=== PATIENT | male | born 1970 | race Caucasian/White ===

== ENCOUNTER 2019-08-21 11:55 | Inpatient (IN) | payer BC ==
[2019-08-21 20:10] LABS: ANION GAP 13.3 mmol/L (5-15); CHLORIDE,CL 98 mmol/L (98-115); SODIUM,NA 133 mmol/L (136-145)
[2019-08-21] MEDS ORDERED: Sodium Chloride 0.9% 100 ML ONE (20:58)
[2019-08-21] MEDS ORDERED: Enoxaparin 40 MG/0.4 ML Syringe SUBCUT SCH (21:00)
[2019-08-21] MEDS ORDERED: Enoxaparin 30 MG/0.3 ML Syringe SUBCUT SCH (21:00)
[2019-08-21] MEDS: Enoxaparin 150 MG/1 ML Syringe SUBCUT SCH (21:31)
[2019-08-22] MEDS: Enoxaparin 150 MG/1 ML Syringe SUBCUT SCH ×2 (09:16→22:10)
--- NOTE | 2019-08-22 10:42 | US ---
[id number] US/US Venous Doppler LE Left EXAM: LEFT LOWER EXTREMITY DUPLEX ULTRASOUND INDICATION: LEFT LOWER EXTREMITY SWELLING AND REDNESS. COMPARISON: None. DISCUSSION: The deep venous structures are compressible. No valvular incompetence or pulsatility seen. Spontaneity, phasicity and response to augmentation were noted by the technologist. Prominent lymph node noted in the left groin measuring 31 x 17 x 16 mm. IMPRESSION: 1. No evidence of deep vein thrombosis in the left lower extremity. Demar Jackson MD 08/22/19 1041 Thank you for allowing us to participate in the care of your patient.
--- NOTE | 2019-08-22 10:48 | PCM.PN ---
- General Info Date of Service: 08/22/19 Functional Status: Reports: Pain Controlled, Tolerating Diet, Urinating. Denies : Ambulating, New Symptoms - Review of Systems General: Denies: Fever, Weakness, Fatigue, Malaise HEENT: Reports: No Symptoms Pulmonary: Reports: No Symptoms Cardiovascular: Reports: No Symptoms Gastrointestinal: Reports: No Symptoms Genitourinary: Reports: No Symptoms Musculoskeletal: Reports: No Symptoms Skin: Reports: Rash Neurological: Reports: No Symptoms Psychiatric: Reports: No Symptoms - Patient Data Vitals - Most Recent: Last Vital Signs Temp 98.8 F 08/22/19 06:40 Pulse 82 08/22/19 06:40 Resp 18 08/22/19 06:40 BP 129/78 08/22/19 06:40 Pulse Ox 99 08/22/19 06:40 Weight - Most Recent: 253 lb 9.6 oz I&O - Last 24 Hours: Intake & Output 08/21/19 08/22/19 08/22/19 22:59 06:59 14:59 Intake Total 90 Balance 90 Lab Results Last 24 Hours: Laboratory Results - last 24 hr 08/21/19 08/21/19 08/21/19 Range/Units 19:40 19:40 19:40 WBC 7.42 (5.00-10.00) 10^3/uL RBC 4.88 (4.50-6.00) 10^6/uL Hgb 14.8 (13.0-17.0) g/dL Hct 42.7 (40.0-52.0) % MCV 87.5 (82.0-92.0) fL MCH 30.3 (27.0-31.0) pg MCHC 34.7 (32.0-36.0) g/dL RDW 12.8 (11.5-14.5) % Plt Count 235 (150-400) 10^3/uL MPV 9.1 (7.4-10.4) fL Immature Gran % (Auto) 0.1 (0.0-5.0) % Neut % (Auto) 70.7 H (50.0-70.0) % Lymph % (Auto) 18.3 L (20.0-40.0) % [place] % (Auto) 9.0 H (2.0-8.0) % Eos % (Auto) 1.6 (1.0-3.0) % Baso % (Auto) 0.3 (0.0-1.0) % Immature Gran # (Auto) 0.01 (0.00-0.50) 10^3/uL Neut # (Auto) 5.24 (2.50-7.00) 10^3/uL Lymph # (Auto) 1.36 (1.00-4.00) 10^3/uL [place] # (Auto) 0.67 (0.10-0.80) 10^3/uL Eos # (Auto) 0.12 (0.10-0.30) 10^3/uL Baso # (Auto) 0.02 (0.00-0.10) 10^3/uL D-Dimer, Quantitative 747 H (<400) ng/mL Sodium 133 L (136-145) mmol/L Potassium 3.9 (3.3-5.3) mmol/L Chloride 98 (98-115) mmol/L Carbon Dioxide 25.6 (21.0-32.0) mmol/L Anion Gap 13.3 (5-15) mmol/L BUN 15 (6-25) mg/dL Creatinine 1.00 (0.51-1.17) mg/dL Est Cr Clr Drug Dosing TNP Estimated GFR (MDRD) > 60 mL/min Glucose 143 H (75 - 99) mg/dL Calcium 8.8 (8.7-10.3) mg/dL Total Bilirubin 0.4 (0.2-1.0) mg/dL AST 19 (15-37) U/L ALT 32 (12-78) U/L Alkaline Phosphatase 54 (46-116) IU/L C-Reactive Protein 11.8 H (0.0-0.9) mg/dL Total Protein 7.9 (6.4-8.2) g/dL Albumin 3.41 (3.00-4.80) g/dL Med Orders - Current: Current Medications Enoxaparin Sodium (Lovenox) 115 mg SUBCUT BID [facility] Last Admin: 08/22/19 09:16 Dose: 115 mg Cefazolin Sodium 1.5 gm/ (Sodium Chloride) 50 mls @ 200 mls/hr IV Q8H [facility] Last Admin: 08/22/19 03:50 Dose: 200 mls/hr Sodium Chloride (Saline Flush) 10 ml FLUSH Q8HR PRN PRN Reason: keep vein open Discontinued Medications Sodium Chloride (Normal Saline) Confirm Administered Dose 100 mls @ as directed .ROUTE .STK-MED ONE Stop: 08/21/19 20:59 Last Admin: 08/21/19 21:00 Dose: 50 mls/hr - Exam Quality Assessment: DVT Prophylaxis. No: Supplemental Oxygen General: Alert, Oriented Neck: Supple Lungs: Clear to Auscultation, Normal Respiratory Effort Cardiovascular: Regular Rate, Regular Rhythm GI/Abdominal Exam: Normal Bowel Sounds, Soft, Non-Tender, No Organomegaly, No Distention, No Abnormal Bruit, No Mass, Pelvis Stable Back Exam: No: CVA Tenderness (L), CVA Tenderness (R) Wound/Incisions: Erythema Psy/Mental Status: Alert, Normal Affect, Normal Mood Sepsis Event Note - Evaluation Sepsis Screening Result: No Definite Risk - Focused Exam Vital Signs: Vital Signs Temp Pulse Resp BP Pulse Ox Pulse Ox 08/22/19 06:40 98.8 F 82 18 129/78 99 08/22/19 06:35 99 08/21/19 22:58 98.3 F 87 18 138/80 99 Date Exam was Performed: 08/22/19 Time Exam was Performed: 10:37 - Problem List Review Problem List Initiated/Reviewed/Updated: Yes - Plan Plan:: Brief history This 48-year-old obese gentleman was admitted due to cellulitis. He was seen yesterday [facility] and was admitted by Sara Delarosa NP and came in due to 1 to 2-day l It is not painful when he walks but it does hurt to the touch. He has not put anything on it or taken anything for it. He denotes at one point in a dry patchy area on his leg in which a policy cancellation clerk diagnosed him with eczema. He denies having any injury or break in skin. work-up to date, --elevated d-dimer, --blood cultures pending. --White count normal however elevated ESR. --cefazolin started Hospital course to date Patient is sitting in a chair, no fever, much improved erythema receding from margins left lower extremity, negative chest pain. negative shortness of breath negative [facility] problems --Cellulitis, LLL, improving, --Rule out DVT, CT chest today --Constipation --Venous insufficiency, presumptive Disposition/overall plan --ABG if Pa02 is normal likely will forego chest CT --EKG --venous Doppler --Continue antibiotics, --Elevate LLE, toes to nose --DVT prophylaxis
[2019-08-22 11:48] LABS: BASE EXCESS ARTERIAL -2 mmol/L (-2-3); BICARBONATE,ARTERIAL 22.3 mmol/L (22-26); O2 DELIVERY DEVICE ROOM AIR; O2 SATURATION ARTERIAL 97 % (95-98); PCO2 ARTERIAL 33 mmHG (35-45); PO2 ARTERIAL 84 mmHG (80-105)
[2019-08-22] MEDS: Sodium Chloride 0.9% 10 ML Syringe FLUSH PRN (12:30)
[2019-08-23] MEDS: Sodium Chloride 0.9% 50 ML IV SCH (05:53)
[2019-08-23] MEDS: Enoxaparin 40 MG/0.4 ML Syringe SUBCUT SCH ×2 (09:36→21:50)
--- NOTE | 2019-08-23 09:51 | PCM.PN ---
- General Info Date of Service: 08/23/19 Functional Status: Reports: Pain Controlled, Tolerating Diet, Ambulating - Review of Systems General: Reports: No Symptoms Pulmonary: Reports: No Symptoms Cardiovascular: Reports: Edema Gastrointestinal: Reports: No Symptoms Skin: Reports: Rash Neurological: Denies: Confusion Psychiatric: Reports: No Symptoms - Patient Data Vitals - Most Recent: Last Vital Signs Temp 97.1 F 08/23/19 06:53 Pulse 77 08/23/19 06:53 Resp 16 08/23/19 06:53 BP 126/78 08/23/19 06:53 Pulse Ox 96 08/23/19 06:53 Weight - Most Recent: 253 lb 9.6 oz I&O - Last 24 Hours: Intake & Output 08/22/19 08/23/19 08/23/19 22:59 06:59 14:59 Intake Total 540 250 Balance 540 250 Lab Results Last 24 Hours: Laboratory Results - last 24 hr 08/22/19 Range/Units 11:37 ABG pH 7.44 (7.35-7.45) ABG pCO2 33 L (35-45) mmHG ABG pO2 84 (80-105) mmHG ABG HCO3 22.3 (22-26) mmol/L ABG Total CO2 23 (23-27) mmol/L ABG O2 Saturation 97 (95-98) % ABG Base Excess -2 (-2-3) mmol/L O2 Delivery Device Room air [place] Results Last 24 Hours: Microbiology 08/21/19 20:00 Aerobic Blood Culture - Preliminary Blood - Venous - Lab Draw NO GROWTH AFTER 1 DAY Anaerobic Blood Culture - Preliminary NO GROWTH AFTER 1 DAY 08/21/19 19:40 Aerobic Blood Culture - Preliminary Blood - Venous NO GROWTH AFTER 1 DAY Anaerobic Blood Culture - Preliminary NO GROWTH AFTER 1 DAY Med Orders - Current: Current Medications Enoxaparin Sodium (Lovenox) 40 mg SUBCUT BID [facility] Last Admin: 08/23/19 09:36 Dose: 40 mg Cefazolin Sodium 1.5 gm/ (Sodium Chloride) 100 mls @ 400 mls/hr IV Q8H [facility] Last Admin: 08/23/19 05:53 Dose: 400 mls/hr Sodium Chloride (Normal Saline) 50 mls @ 125 mls/hr IV ASDIRECTED [facility] Last Admin: 08/23/19 05:53 Dose: 125 mls/hr Sodium Chloride (Saline Flush) 10 ml FLUSH Q8HR PRN PRN Reason: keep vein open Last Admin: 08/22/19 12:30 Dose: 10 ml Discontinued Medications Enoxaparin Sodium (Lovenox) 115 mg SUBCUT BID [facility] Last Admin: 08/22/19 22:10 Dose: 115 mg Cefazolin Sodium 1.5 gm/ (Sodium Chloride) 50 mls @ 200 mls/hr IV Q8H [facility] Last Admin: 08/22/19 12:30 Dose: 200 mls/hr Sodium Chloride (Normal Saline) Confirm Administered Dose 100 mls @ as directed .ROUTE .STK-MED ONE Stop: 08/21/19 20:59 Last Admin: 08/21/19 21:00 Dose: 50 mls/hr Cefazolin Sodium 1.5 gm/ (Sodium Chloride) 100 mls @ 400 mls/hr IV Q8H [facility] - Exam Quality Assessment: DVT Prophylaxis. No: Supplemental Oxygen General: Alert, Oriented, Cooperative Lungs: Clear to Auscultation Cardiovascular: Regular Rate, Regular Rhythm Extremities: Pedal Edema (mild LLE) Peripheral Pulses: 2+: Radial (L), Radial (R) Skin: Warm, Rash Wound/Incisions: No Drainage, Erythema Improving, Other (negative Homans) Sepsis Event Note - Evaluation Sepsis Screening Result: No Definite Risk - Focused Exam Vital Signs: Vital Signs Temp Pulse Resp BP Pulse Ox 08/23/19 06:53 97.1 F 77 16 126/78 96 08/22/19 23:00 97.5 F 80 16 128/76 97 Date Exam was Performed: 08/23/19 Time Exam was Performed: 09:45 - Problem List Review Problem List Initiated/Reviewed/Updated: Yes - My Orders Last 24 Hours: My Active Orders 08/22/19 11:10 EKG 12 Lead [EK] Routine 08/22/19 11:11 EKG Documentation Completion [RC] ASDIRECTED 08/22/19 11:55 Patient Status [ADT] Routine 08/23/19 08:30 CRP [C-REACTIVE PROTEIN] [CHEM] Routine 08/23/19 09:00 Enoxaparin [Lovenox] 40 mg SUBCUT BID - Plan Plan:: Brief history This 48-year-old obese gentleman was admitted due to cellulitis. He was seen yesterday [facility] and was admitted by Sara Delarosa NP and came in due to 1 to 2-day l It is not painful when he walks but it does hurt to the touch. He has not put anything on it or taken anything for it. 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 He denies having any injury or break in skin. work-up to date, --elevated d-dimer, --blood cultures pending. --White count normal however elevated ESR. --cefazolin started Hospital course to date Day #1: Patient is sitting in a chair, no fever, much improved erythema receding from margins left lower extremity, negative chest pain. negative shortness of breath negative Homans Day #2: Doing well, redness slowly receding however as lagging indicator in cellulitis, wrinkling noted, less warmth today. No pain. BC no growth. No fever. Hospital problems --Cellulitis, LLL, improving, --Constipation, improving --Venous insufficiency, presumptive Disposition/overall plan- --Continue antibiotics, --CRP in Am. --Elevate LLE, toes to nose --DVT prophylaxis, reduce dose today --Anticipate DC Wednesday on PO ABX with close f/u.
[2019-08-23] MEDS: Sodium Chloride 0.9% 10 ML Syringe FLUSH PRN (13:25)
[2019-08-24] MEDS: Sodium Chloride 0.9% 10 ML Syringe FLUSH PRN ×2 (05:16→13:32)
[2019-08-24] MEDS: Enoxaparin 40 MG/0.4 ML Syringe SUBCUT SCH ×2 (09:26→21:52)
--- NOTE | 2019-08-24 10:19 | PCM.PN ---
- General Info Date of Service: 08/24/19 Functional Status: Reports: Pain Controlled, Tolerating Diet, Ambulating. Denies: New Symptoms - Review of Systems General: Reports: No Symptoms HEENT: Reports: No Symptoms Pulmonary: Reports: No Symptoms Cardiovascular: Reports: No Symptoms Gastrointestinal: Reports: No Symptoms Genitourinary: Reports: No Symptoms Musculoskeletal: Denies: Leg Pain Skin: Reports: Rash Neurological: Denies: Confusion - Patient Data Vitals - Most Recent: Last Vital Signs Temp 97.1 F 08/24/19 07:00 Pulse 72 08/24/19 07:00 Resp 16 08/24/19 07:00 BP 127/84 08/24/19 07:00 Pulse Ox 98 08/24/19 07:00 Weight - Most Recent: 253 lb 9.6 oz I&O - Last 24 Hours: Intake & Output 08/23/19 08/24/19 08/24/19 22:59 06:59 14:59 Intake Total 1035 281 Balance 1035 281 Lab Results Last 24 Hours: Laboratory Results - last 24 hr 08/23/19 Range/Units 09:45 C-Reactive Protein 14.9 H (0.0-0.9) mg/dL [place] Results Last 24 Hours: Microbiology 08/21/19 20:00 Aerobic Blood Culture - Preliminary Blood - Venous - Lab Draw NO GROWTH AFTER 2 DAYS Anaerobic Blood Culture - Preliminary NO GROWTH AFTER 2 DAYS 08/21/19 19:40 Aerobic Blood Culture - Preliminary Blood - Venous NO GROWTH AFTER 2 DAYS Anaerobic Blood Culture - Preliminary NO GROWTH AFTER 2 DAYS Med Orders - Current: Current Medications Enoxaparin Sodium (Lovenox) 40 mg SUBCUT BID [facility] Last Admin: 08/24/19 09:26 Dose: 40 mg Cefazolin Sodium 1.5 gm/ (Sodium Chloride) 100 mls @ 400 mls/hr IV Q8H [facility] Last Admin: 08/24/19 05:15 Dose: 400 mls/hr Sodium Chloride (Normal Saline) 50 mls @ 125 mls/hr IV ASDIRECTED [facility] Last Admin: 08/23/19 05:53 Dose: 125 mls/hr Sodium Chloride (Saline Flush) 10 ml FLUSH Q8HR PRN PRN Reason: keep vein open Last Admin: 08/24/19 05:16 Dose: 10 ml Discontinued Medications Enoxaparin Sodium (Lovenox) 115 mg SUBCUT BID [facility] Last Admin: 08/22/19 22:10 Dose: 115 mg Cefazolin Sodium 1.5 gm/ (Sodium Chloride) 50 mls @ 200 mls/hr IV Q8H [facility] Last Admin: 08/22/19 12:30 Dose: 200 mls/hr Sodium Chloride (Normal Saline) Confirm Administered Dose 100 mls @ as directed .ROUTE .STK-MED ONE Stop: 08/21/19 20:59 Last Admin: 08/21/19 21:00 Dose: 50 mls/hr Cefazolin Sodium 1.5 gm/ (Sodium Chloride) 100 mls @ 400 mls/hr IV Q8H [facility] - Exam Quality Assessment: DVT Prophylaxis General: Alert, Oriented Lungs: Clear to Auscultation, Normal Respiratory Effort Cardiovascular: Regular Rate, Regular Rhythm Extremities: No Pedal Edema Skin: Rash (Some wrinkling less receding today, decreasing warmth) Wound/Incisions: No Drainage, Erythema, Erythema Improving Psy/Mental Status: Alert, Normal Affect, Normal Mood Sepsis Event Note - Evaluation Sepsis Screening Result: No Definite Risk - Focused Exam Vital Signs: Vital Signs Temp Pulse Resp BP Pulse Ox 08/24/19 07:00 97.1 F 72 16 127/84 98 08/23/19 23:00 97.3 F 76 16 137/85 97 Date Exam was Performed: 08/24/19 Time Exam was Performed: 10:08 - Problem List Review Problem List Initiated/Reviewed/Updated: Yes - My Orders Last 24 Hours: My Active Orders 08/25/19 05:11 C-REACTIVE PROTEIN [CHEM] AM 08/25/19 05:15 CBC WITH AUTO DIFF [HEME] AM - Plan Plan:: Brief history This 48-year-old obese gentleman was admitted due to cellulitis. He was seen yesterday [facility] and was admitted by Sara Delarosa NP and came in due to 1 to 2-day l It is not painful when he walks but it does hurt to the touch. He has not put anything on it or taken anything for it. 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 He denies having any injury or break in skin. work-up to date, --elevated d-dimer, --blood cultures pending. --White count normal however elevated ESR. --cefazolin started Hospital course to date Day #1: Patient is sitting in a chair, no fever, much improved erythema receding from margins left lower extremity, negative chest pain. negative shortness of breath negative Homans Day #2: Doing well, redness slowly receding however as lagging indicator in cellulitis, wrinkling noted, less warmth today. No pain. BC no growth. No fever. increasing CRP levels. Day #3; Doing well, no concerns, less redness receding however much less warmth , more wrinkling noted, less swelling, no longer painful. Neg Homans. no growth. No fever. Hospital problems --Cellulitis, LLL, improving, --Constipation, improving --Venous insufficiency, presumptive likely contributable. Disposition/overall plan- --Continue antibiotics, --Trend CRP in Am. --Elevate LLE, toes to nose --DVT prophylaxis, LMWH, monitor PLT --Anticipate DC tomorrowl on PO abx. with close f/u.
[2019-08-24] MEDS: Sodium Chloride 0.9% 50 ML IV SCH (13:32)
[2019-08-25] MEDS: Sodium Chloride 0.9% 50 ML IV SCH (05:35)
[2019-08-25] MEDS: Sodium Chloride 0.9% 10 ML Syringe FLUSH PRN (05:36)
[2019-08-25] MEDS: Enoxaparin 40 MG/0.4 ML Syringe SUBCUT SCH (08:44)
--- NOTE | 2019-08-25 09:18 | PCM.DCSUM1 ---
Discharge Summary - Hospital Course Diagnosis: Stroke: No - Discharge Data Discharge Date: 08/25/19 Discharge Disposition: Home, Self-Care 01 Condition: Good - Referral to Home Health Primary Care Physician: Sara Delarosa NP - Patient Instructions Activity: Elevate Extremity, No Strenuous Activities Driving: May Drive Today Showering/Bathing: May Shower, No Tub Bathing/Swimming Notify Provider of: Fever, Increased Pain, Swelling and Redness, Drainage Other/Special Instructions: --Elevate leg "toes to level of nose". --You have antibiotics to lemon picker at your pharmacy in [place] - Discharge Plan *PRESCRIPTION DRUG MONITORING PROGRAM REVIEWED*: Not Applicable *COPY OF PRESCRIPTION DRUG MONITORING REPORT IN PATIENT BOOGIE: Not Applicable Home Medications: Home Meds . [No Known Home Meds] 08/21/19 [History] Referrals: Keara Pelaez PA-C [Physician Rnfa] - ([facility] or anybody else in [facility]) - Discharge Summary/Plan Comment DC Time >30 min.: No Discharge Summary/Plan Comment: Final Dx --Cellulitis, LLL, improving, non-erysipelas --Venous insufficiency, presumptive likely contributable Brief history/prehospital This 48-year-old obese gentleman was initially admitted into OBS status and changed to inpatient and due to cellulitis in his left lower extremity. He was seen day before admission at an [facility] and was admitted by Sara Delarosa NP when the patient came in with ~1-2 days of significant erythema to LLE. 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 He denies having any injury or break in skin. Pertinent work-up --elevated d-dimer, --blood cultures were drawn --White count normal however elevated ESR. --cefazolin started Hospital course Day #1: Patient was sitting in a chair, no fever, much improved erythema receding from margins left lower extremity, negative chest pain. negative shortness of breath negative Homans. Ancef were started he had no allergic reaction or side effects. DVT prophylaxis was started. Ultrasound was done patient had negative DVT. Day #2: Ongoing improvementl, redness slowly receding however as lagging indicator in cellulitis, wrinkling noted, less warmth, No pain. BC no growth. No fever. However increasing CRP levels. Day #3; did well, there was no overnight concerns, less redness receding however much less warmth, more wrinkling was noted, less swelling, no longer painful. Neg Homans. Blood cultures no growth. No fever. Day #4; charge day, CRP trended down, much improvement, blood cultures no growth , no pain, decreased redness depth Medication changes/adjustments upon discharge Doxycycline 500 mg every 6 hours, ordered through [facility] Disposition/overall plan --Patient will be discharged from [facility], he was given specific instructions on elevation, --Follow-up appointment next week [facility] --Continue antibiotics, --Recommendations at follow-up, set patient up for venous insufficiency studies - General Info Functional Status: Reports: Pain Controlled - Review of Systems General: Reports: No Symptoms Pulmonary: Reports: No Symptoms Cardiovascular: Reports: No Symptoms Gastrointestinal: Reports: No Symptoms Musculoskeletal: Denies: Leg Pain, Joint Swelling Skin: Reports: Rash Neurological: Denies: Confusion Psychiatric: Denies: Confusion - Patient Data Vitals - Most Recent: Last Vital Signs Temp 97.3 F 08/25/19 06:43 Pulse 74 08/25/19 06:43 Resp 16 08/25/19 06:43 BP 124/77 08/25/19 06:43 Pulse Ox 95 08/25/19 07:00 Weight - Most Recent: 253 lb 9.6 oz I&O - Last 24 hours: Intake & Output 08/24/19 08/25/19 08/25/19 22:59 06:59 14:59 Intake Total 1026 335 Balance 1026 335 Lab Results - Last 24 hrs: Laboratory Results - last 24 hr 08/25/19 08/25/19 Range/Units 07:22 07:22 WBC 5.81 (5.00-10.00) 10^3/uL RBC 4.86 (4.50-6.00) 10^6/uL Hgb 14.7 (13.0-17.0) g/dL Hct 43.1 (40.0-52.0) % MCV 88.7 (82.0-92.0) fL MCH 30.2 (27.0-31.0) pg MCHC 34.1 (32.0-36.0) g/dL RDW 12.7 (11.5-14.5) % Plt Count 388 D (150-400) 10^3/uL MPV 8.9 (7.4-10.4) fL Immature Gran % (Auto) 0.7 (0.0-5.0) % Neut % (Auto) 53.6 (50.0-70.0) % Lymph % (Auto) 27.7 (20.0-40.0) % [place] % (Auto) 10.2 H (2.0-8.0) % Eos % (Auto) 7.1 H (1.0-3.0) % Baso % (Auto) 0.7 (0.0-1.0) % Immature Gran # (Auto) 0.04 (0.00-0.50) 10^3/uL Neut # (Auto) 3.12 (2.50-7.00) 10^3/uL Lymph # (Auto) 1.61 (1.00-4.00) 10^3/uL [place] # (Auto) 0.59 (0.10-0.80) 10^3/uL Eos # (Auto) 0.41 H (0.10-0.30) 10^3/uL Baso # (Auto) 0.04 (0.00-0.10) 10^3/uL C-Reactive Protein 5.7 H (0.0-0.9) mg/dL JOANNE Results - Last 24 hrs: Microbiology 08/21/19 20:00 Aerobic Blood Culture - Preliminary Blood - Venous - Lab Draw NO GROWTH AFTER 3 DAYS Anaerobic Blood Culture - Preliminary NO GROWTH AFTER 3 DAYS 08/21/19 19:40 Aerobic Blood Culture - Preliminary Blood - Venous NO GROWTH AFTER 3 DAYS Anaerobic Blood Culture - Preliminary NO GROWTH AFTER 3 DAYS Med Orders - Current: Current Medications Enoxaparin Sodium (Lovenox) 40 mg SUBCUT BID [facility] Last Admin: 08/25/19 08:44 Dose: 40 mg Cefazolin Sodium 1.5 gm/ (Sodium Chloride) 100 mls @ 400 mls/hr IV Q8H [facility] Last Admin: 08/25/19 05:34 Dose: 400 mls/hr Sodium Chloride (Normal Saline) 50 mls @ 125 mls/hr IV ASDIRECTED [facility] Last Admin: 08/25/19 05:35 Dose: 125 mls/hr Sodium Chloride (Saline Flush) 10 ml FLUSH Q8HR PRN PRN Reason: keep vein open Last Admin: 08/25/19 05:36 Dose: 10 ml Discontinued Medications Enoxaparin Sodium (Lovenox) 115 mg SUBCUT BID [facility] Last Admin: 08/22/19 22:10 Dose: 115 mg Cefazolin Sodium 1.5 gm/ (Sodium Chloride) 50 mls @ 200 mls/hr IV Q8H [facility] Last Admin: 08/22/19 12:30 Dose: 200 mls/hr Sodium Chloride (Normal Saline) Confirm Administered Dose 100 mls @ as directed .ROUTE .STK-MED ONE Stop: 08/21/19 20:59 Last Admin: 08/21/19 21:00 Dose: 50 mls/hr Cefazolin Sodium 1.5 gm/ (Sodium Chloride) 100 mls @ 400 mls/hr IV Q8H [facility] - Exam Cardiovascular: Reports: Regular Rate Extremities: No Pedal Edema, Other (nomrla distal pedal pulse dorsalis pedis) Skin: Reports: Warm Wound/Incisions: Reports: Erythema, Erythema Improving Psy/Mental Status: Reports: Alert
== END 2019-08-25 09:50 | disposition home or self-care (01) | DRG 383 ==
LOC: KA.MS 11:55 → OBSVTOIN 08-22 11:55
PROVIDERS: ADMIT Nurse Practitioner Family; ATTEND Family Medicine
DX: L03.116 Cellulitis of left lower limb (principal); K59.00 Constipation, unspecified; I87.2 Venous insufficiency (chronic) (peripheral); E66.9 Obesity, unspecified; L30.9 Dermatitis, unspecified; R79.1 Abnormal coagulation profile; Z68.33 Body mass index [BMI] 33.0-33.9, adult
CPT/HCPCS: 36415; 36600; 80053; 82803; 85025; 85379; 86140; 87040; 93005; 93971; 96365; 96372; 96376; G0378; J0690; J1650; J7050